=== PATIENT | male | born 1975 ===

== ENCOUNTER 2016-12-14 14:20 | Emergency (ER) | payer MEDICAID, OTHER ==
[2016-12-14 14:39] LABS: BASOPHIL# 0.1 X 10^3uL (0.0-0.1); BASOPHILS 0.8 % (0.0-2.0); EOSINOPHILS 0.7 % (0.0-6.0); EOSINOPHILS# 0.1 X 10^3uL (0.0-0.4); LYMPHOCYTES 17.8 % (20.0-40.0); LYMPHOCYTES# 1.5 X 10^3uL (0.8-3.8); MEAN CELL VOLUME 85.5 fL (84.0-102.0); MEAN CORPUS. HGB CONCENTRATION 34.1 g/dL (32.0-36.0); MEAN CORPUSCULAR HEMOGLOBIN 29.1 pg (29.0-35.0); MEAN PLATELET VOLUME 9.3 fL (7.4-10.4); MONOCYTES 13.1 % (2.0-10.0); MONOCYTES# 1.1 X 10^3uL (0.2-1.0); NEUTROPHILS 67.6 % (54.0-75.0); NEUTROPHILS# 5.4 X 10^3uL (2.6-6.7); PLATELET COUNT 164 X 10^3uL (130-440); RED BLOOD COUNT 5.26 X 10^6uL (4.20-6.10); RED CELL DISTRIBUTION WIDTH 11.6 % (11.5-14.5); WHITE BLOOD COUNT 8.2 X 10^3uL (3.9-10.7)
[2016-12-14 14:43] LABS: HEMOGLOBIN 15.3 g/dL (14.0-18.0)
[2016-12-14 14:50] LABS: ALKALINE PHOSPHATASE 63 U/L (38-126); AST 40 U/L (17-59); BILIRUBIN, TOTAL 0.7 mg/dL (0.2-1.3); BLOOD UREA NITROGEN 10 mg/dL (9-20); CHLORIDE 102 mmol/L (98-107); CREATININE 0.7 mg/dL (0.7-1.3); EST GLOMERULAR FILTRATION RATE > 60 mL/min; LIPASE 82 U/L (23-300); POTASSIUM 3.2 mmol/L (3.5-5.1); SODIUM 141 mmol/L (137-145)
[2016-12-14 14:51] LABS: ETHYL ALCOHOL < 10 mg/dL (<10); GLUCOSE 272 mg/dL (70-100)
[2016-12-14] MEDS ORDERED: POTASSIUM EFF 25 MEQ TABLET ONE (15:27)
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
== END 2016-12-14 17:03 | disposition home or self-care (01) ==
LOC: ER 14:20
DX: S20.219A Contusion of unspecified front wall of thorax, initial encounter (principal); V47.5XXA Car driver injured in collision with fixed or stationary object in traffic accident, initial encounter; Y92.413 State road as the place of occurrence of the external cause; E11.65 Type 2 diabetes mellitus with hyperglycemia; Z79.899 Other long term (current) drug therapy; Z74.3 Need for continuous supervision
CPT/HCPCS: 80048; 80320; 82247; 83690; 84075; 84450; 85025; 85610; 96360; 99284; A0425; A0429; G0390